=== PATIENT | male | born 1970 | race Two or more races ===

== ENCOUNTER 2017-08-09 09:55 | Emergency (ER) | payer OTHER ==
[~2017-08-09] VITALS: Ht 167.6 cm; Wt 82.0 kg
[2017-08-09] MEDS ORDERED: HYDROmorphone 2 MG/ML, 1ML ONE (10:03)
[2017-08-09] MEDS ORDERED: ONDANSETRON 2MG/ML, 2ML ONE ×2 (10:03→11:59)
[2017-08-09] MEDS ORDERED: SODIUM CHLORIDE FLUSH 10ML SYR IVF ONE (10:30)
[2017-08-09] MEDS ORDERED: PLEASE ENTER ALLERGIES MC SCH (10:30)
[2017-08-09] MEDS ORDERED: ONDANSETRON 2MG/ML, 2ML IVPush ONE (10:30)
[2017-08-09] MEDS ORDERED: HYDROmorphone 1 MG/ML, 1ML IVPush PRN (10:30)
[2017-08-09] MEDS ORDERED: PLEASE ENTER HEIGHT AND WEIGHT MC SCH (10:30)
[2017-08-09 10:42] LABS: MICROSCOPIC AUTO
[2017-08-09 10:46] LABS: CULTURE INDICATED? YES
[2017-08-09 11:49] VITALS: BP 136/69
[2017-08-09] MEDS ORDERED: KETOROLAC 30 MG/1 ML ONE (11:59)
== END 2017-08-09 12:14 | disposition home or self-care (01) ==
LOC: ED 11:06
DX: N13.2 Hydronephrosis with renal and ureteral calculous obstruction (principal); R31.9 Hematuria, unspecified; F17.210 Nicotine dependence, cigarettes, uncomplicated; Z87.11 Personal history of peptic ulcer disease
CPT/HCPCS: 74176; 81001; 87086; 93005; 96374; 96375; 99285; J1170; J2405